=== PATIENT | female | born 1975 | race African-American/Black ===

== ENCOUNTER 2018-10-18 19:21 | Inpatient (IN) | payer OTHER ==
[~2018-10-18] VITALS: Ht 167.6 cm; Wt 77.1 kg
--- NOTE | ~2018-10-18 | EKG ---
[address] [address] ELECTROCARDIOGRAM REPORT Name: NOEMIBERNARD Ramirez Room #: 428-P ADM IN M.R.#: [id number] Admission: 10/18/18 Attend Phys: Driss Rodríguez MD Discharge: Date of : 75 Report #: [id number] THIS REPORT FOR: //name// [facility] Test Date: 2018-10-19 Test Time: 08:10:05 Pat Name: BERNARD FRANKLIN Department: Room: 428 Gender: F Drilling Foreman: JUANA : 1975 Requested By: Gabriella Rollins Order Number: [id number] MD: Tee Pearl Measurements Intervals [place] Rate: 61 P: 67 KS: 158 QRS: 46 QRSD: 103 T: 30 QT: 426 QTc: 429 Interpretive Statements Sinus rhythm No previous ECG available for comparison Electronically Signed On 10-19-2018 9:39:00 PIPELAYING FITTER by Tee Pearl [email or web address] <ELECTRONICALLY SIGNED> By: Tee Pearl MD 10/19/18 0939 0810 0810 Tee Pearl MD /EPI
--- NOTE | ~2018-10-18 | HC ---
[facility] [place] [address] CONSULTATION Name: BERNARD FRANKLIN Room #: 428-P ADM IN M.R.#: [id number] Admission: 10/18/18 Attend Phys: Driss Rodríguez MD Discharge: Date of : 75 Report #: [id number] THIS REPORT FOR: //name// CC: NO PCP Driss Rodríguez Physician staff Jose Antonio Ac DATE OF SERVICE: 10/18/2018 INTRODUCTION: This is a 43-year-old female who was seen in the ER for a fracture of left ankle. HISTORY OF PRESENT ILLNESS: This is a 43-year-old female who is very healthy, who fractured left ankle, it is a trimalleolar equivalent fracture. PAST MEDICAL HISTORY: Unremarkable for heart problems, kidney problems, liver problems or bleeding disorders. MEDICATIONS: Wellbutrin for anxiety, which she does not take very often. ALLERGIES: None. SOCIAL HISTORY: No history of tobacco use, occasional alcohol. No recreational drugs. FAMILY HISTORY: Noncontributory. PAST SURGICAL HISTORY: None. REVIEW OF SYSTEMS: Unremarkable. PHYSICAL EXAMINATION: GENERAL: Well-developed, well-nourished female, in no acute distress. HEENT: PERRLA. NECK: Supple. No neck adenopathy. HEART: Regular rate and rhythm, no murmurs or gallops. LUNGS: Clear to auscultation, without rales or wheezing. EXTREMITIES: Lower extremities show she has an edematous left ankle, very painful to palpation in generalized ankle area. She has normal neurovascular status, the vascular status is intact. DIAGNOSTIC DATA: X-rays show a posterior malleolus fracture, displaced and a distal fibular fracture, displaced. Ankle mortise appears to be in good [facility] [address] [place] [address] CONSULTATION Name: BERNARD FRANKLIN Room #: 428-P [facility] IN .R.#: [id number] Admission: 10/18/18 Attend Phys: Driss Rodríguez MD Discharge: Date of : 75 Report #: [id number] alignment. ASSESSMENT: Trimalleolar equivalent fracture. PLAN: Is for ORIF of the left ankle. The patient understands the procedure and possible complications, such as chronic pain, chronic edema, nonunion, delayed union, malunion, hardware irritation, infection of soft tissue and bone, and postoperative recovery and posttraumatic arthritis. The patient will have a leg block if Anesthesia is willing. The patient's surgery will be done on 10/19/2018 at approximately 1:00. <ELECTRONICALLY SIGNED> By: Jose Antonio Ac DPM 10/19/18 1613 1306 1424 Jose Antonio Ac DPM /nt
[~2018-10-18 19:21] MED LIST: AMOXICILLIN 50500 MG PO; CIPROFLOXACIN500 M1 PO; CLEOCIN HCL150 MG PO; FLAGYL500 MG PO; HYDROCODONE-AP1 EAC6 PO; IBUPROFEN 600600 M1 PO; IBUPROFEN 800800 M1 PO; MACROBID 100 M100 M1 PO; NORCO 5-325 TA1 EACH PO; PYRIDIUM200 MG PO; TYLENOL325 MG PO; WELLBUTRIN XL300 MG PO; ZOFRAN ODT4 MG PO
[2018-10-18 19:25] VITALS: BP 112/89
[2018-10-18] MEDS ORDERED: WELLBUTRIN XL300 MG PO (20:46)
[2018-10-18 21:05] LABS: ABSOLUTE NEUTROPHILS 7.2 thou/uL (1.4-8.2); BASOPHILS 0.2 % (0.0-2.0); EOSINOPHILS 0.3 % (0.0-3.0); HEMATOCRIT 36.7 % (37.0-47.0); HEMOGLOBIN 12.5 gm/dL (12.0-15.0); LYMPHOCYTES 15.9 % (24.0-44.0); MCH 27.1 pg (26.0-34.0); MCHC 33.9 g/dL (28.0-37.0); MCV 79.9 fL (80.0-100.0); MONOCYTES 4.6 % (1.0-8.0); PLATELET COUNT 140 thou/uL (150-400); RDW 14.5 % (10.5-14.5); WBC 9.1 thou/uL (4.0-11.0)
[2018-10-18 21:12] LABS: CALCIUM 9.5 mg/dL (8.5-10.1); CREATININE 0.9 mg/dL (0.6-1.0)
[2018-10-18 21:18] LABS: APTT 25.9 Seconds (24.5-32.8); PROTIME 10.4 Seconds (9.3-11.4)
[2018-10-18 22:06] VITALS: BP 103/74
[2018-10-18 22:40] VITALS: BP 122/86
[2018-10-19 08:02] VITALS: BP 100/57
[2018-10-19 16:45] VITALS: BP 97/56
[2018-10-19 17:15] VITALS: BP 101/54
[2018-10-19 18:15] VITALS: BP 104/56
[2018-10-19 19:15] VITALS: BP 101/62
[2018-10-19 19:49] VITALS: BP 110/62
[2018-10-20 05:30] VITALS: BP 120/40; BP 88/64
[2018-10-20 08:16] VITALS: BP 106/77
[2018-10-20] MEDS ORDERED: ALPRAZOLAM 0.50.5 M1 PO (14:19)
[2018-10-20] MEDS ORDERED: PERCOCET PO (14:19)
[2018-10-20] MEDS ORDERED: IBUPROFEN 200200 M1 PO (14:19)
[2018-10-20 15:27] VITALS: BP 106/77
[2018-10-20 18:27] VITALS: BP 119/64
== END 2018-10-20 18:30 | disposition home or self-care (01) | DRG 494 ==
LOC: ER 19:21 → 4E 21:37 → EROBS 21:37 → 4E 22:25
PROVIDERS: Physician Assistant
PROC: 2W3RX1Z Immobilization of Left Lower Leg using Splint (ICD-10-PCS; principal; 2018-10-18)
PROC: 0QSH04Z Reposition Left Tibia with Internal Fixation Device, Open Approach (ICD-10-PCS; 2018-10-19)
PROC: 0QSK04Z Reposition Left Fibula with Internal Fixation Device, Open Approach (ICD-10-PCS; 2018-10-19)
DX: S82.852A Displaced trimalleolar fracture of left lower leg, initial encounter for closed fracture (principal); I10 Essential (primary) hypertension; F32.9 Major depressive disorder, single episode, unspecified; F17.210 Nicotine dependence, cigarettes, uncomplicated; S82.832A Other fracture of upper and lower end of left fibula, initial encounter for closed fracture; W01.0XXA Fall on same level from slipping, tripping and stumbling without subsequent striking against object, initial encounter; Y93.89 Activity, other specified; Y92.096 Garden or yard of other non-institutional residence as the place of occurrence of the external cause; Y99.8 Other external cause status; Z23 Encounter for immunization
CPT/HCPCS: 10084; 50010; 50101; 50386; 55430; 56524; 56525; 56526; 57091; 62110; 62900; 70005

== ENCOUNTER 2020-09-19 08:59 | Emergency (ER) | payer OTHER ==
[~2020-09-19] VITALS: Ht 167.6 cm; Wt 80.7 kg
[~2020-09-19 08:59] MED LIST changes: +ALPRAZOLAM 0.50.5 M1 PO; +IBUPROFEN 200200 M1 PO; +PERCOCET PO
[2020-09-19 09:05] VITALS: BP 116/79
[2020-09-19] MEDS ORDERED: TRIMETHOPRIM /P10 M1 EA. EYE (09:18)
[2020-09-19] MEDS ORDERED: PRED FORTE 1% EY5 M1 OPHTHALMIC (09:18)
[2020-09-19] MEDS ORDERED: ERYTHROMYCIN E3.5 G2 OPHTHALMIC (09:18)
== END 2020-09-19 10:03 | disposition home or self-care (01) ==
LOC: ER 08:59
DX: H57.11 Ocular pain, right eye (principal); I10 Essential (primary) hypertension; Z79.1 Long term (current) use of non-steroidal anti-inflammatories (NSAID); Z79.2 Long term (current) use of antibiotics; Z79.899 Other long term (current) drug therapy

== ENCOUNTER 2021-03-16 05:30 | Emergency (ER) | payer OTHER ==
[~2021-03-16] VITALS: Ht 167.6 cm; Wt 81.7 kg
[~2021-03-16 05:30] MED LIST changes: +ERYTHROMYCIN E3.5 G2 OPHTHALMIC; +PRED FORTE 1% EY5 M1 OPHTHALMIC; +TRIMETHOPRIM /P10 M1 EA. EYE
[2021-03-16 06:19] LABS: ABSOLUTE NEUTROPHILS 7.3 thou/uL (1.4-8.2); BASOPHILS 0.1 % (0.0-2.0); EOSINOPHILS 0.2 % (0.0-3.0); HEMATOCRIT 38.5 % (37.0-47.0); HEMOGLOBIN 12.7 gm/dL (12.0-15.0); LYMPHOCYTES 4.3 % (24.0-44.0); MCH 26.6 pg (26.0-34.0); MCHC 32.8 g/dL (28.0-37.0); MCV 81.1 fL (80.0-100.0); MONOCYTES 3.1 % (1.0-8.0); PLATELET COUNT 133 thou/uL (150-400); POLYS 92.3 % (36.0-66.0); RBC 4.75 mil/uL (4.20-5.00); RDW 13.8 % (10.5-14.5); WBC 7.9 thou/uL (4.0-11.0)
[2021-03-16 06:27] LABS: CALCIUM 9.3 mg/dL (8.5-10.1); CREATININE 0.9 mg/dL (0.6-1.0); POTASSIUM 4.3 mmol/L (3.5-5.1)
[2021-03-16 06:36] LABS: ALBUMIN 4.2 g/dL (3.4-5.0); TOTAL BILIRUBIN 0.6 mg/dL (0.2-1.0); TOTAL PROTEIN 8.1 g/dL (6.4-8.2)
[2021-03-16] MEDS ORDERED: ZOFRAN ODT4 MG PO (06:57)
[2021-03-16 07:54] VITALS: BP 109/74
== END 2021-03-16 07:54 | disposition home or self-care (01) ==
LOC: ER 05:30
PROVIDERS: Emergency Medicine
DX: R11.10 Vomiting, unspecified (principal); R19.7 Diarrhea, unspecified; Z79.899 Other long term (current) drug therapy

== ENCOUNTER 2021-10-31 17:54 | Emergency (ER) | payer OTHER ==
[~2021-10-31] VITALS: Ht 167.6 cm; Wt 83.5 kg
[2021-10-31 18:38] LABS: HEMATOCRIT 37.4 % (37.0-47.0); HEMOGLOBIN 12.2 gm/dL (12.0-15.0); MCH 26.6 pg (26.0-34.0); MCHC 32.6 g/dL (28.0-37.0); MCV 81.3 fL (80.0-100.0); RBC 4.6 mil/uL (4.20-5.00); WBC 6.1 thou/uL (4.0-11.0)
[2021-10-31 18:45] LABS: CREATININE 0.8 mg/dL (0.6-1.0); POTASSIUM 3.8 mmol/L (3.5-5.1)
[2021-10-31 19:59] LABS: URINE BILIRUBIN NEGATIVE (Negative); URINE BLOOD NEGATIVE (Negative); URINE CLARITY SL CLOUDY; URINE COLOR YELLOW; URINE GLUCOSE-RANDOM* NEGATIVE (Negative); URINE KETONES NEGATIVE (Negative); URINE LEUKOCYTES-REFLEX NEGATIVE (Negative); URINE NITRITE-REFLEX NEGATIVE (Negative); URINE PROTEIN (DIPSTICK) NEGATIVE (Negative); URINE SPECIFIC GRAVITY 1.025 (1.005-1.035); URINE UROBILINOGEN 0.2 E.U./dl (0.2-1.0)
[2021-10-31 21:15] VITALS: BP 128/58
== END 2021-10-31 21:15 | disposition home or self-care (01) ==
LOC: ER 17:54
PROVIDERS: Emergency Medicine; Nurse Practitioner
DX: K59.00 Constipation, unspecified (principal); R10.31 Right lower quadrant pain; I10 Essential (primary) hypertension; F32.9 Major depressive disorder, single episode, unspecified; Z79.899 Other long term (current) drug therapy